=== PATIENT | male | born 1985 | race African-American/Black ===

== ENCOUNTER 2016-08-18 09:22 | Emergency (ER) | payer OTHER ==
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
== END 2016-08-18 10:42 | disposition home or self-care (01) ==
LOC: CFTX 09:22 → CED 09:22 → CFTX 10:33
DX: S13.4XXA Sprain of ligaments of cervical spine, initial encounter (principal); S43.401A Unspecified sprain of right shoulder joint, initial encounter; V43.52XA Car driver injured in collision with other type car in traffic accident, initial encounter
CPT/HCPCS: 72040; 73030; 99284